=== PATIENT | female | born 1990 ===

== ENCOUNTER → 2017-01-26 | Outpatient (CLI) | payer SELFPAY | END | disposition disaster alternative care site (69) | LOC: LGSMG 17:13 | DX: R10.2 Pelvic and perineal pain (principal) ==

== ENCOUNTER → 2017-03-13 | Outpatient (CLI) | payer MEDICARE | END | disposition disaster alternative care site (69) | LOC: LGSMG 17:25 | DX: R30.0 Dysuria (principal) ==